=== PATIENT | female | born 1990 | race Caucasian/White ===

== ENCOUNTER 2020-06-13 23:01 | Emergency (ER) | payer OTHER ==
--- NOTE | 2020-06-13 23:22 | EDM.PDOC ---
ED HPI GENERAL MEDICAL PROBLEM - General Stated Complaint: FOOT Time Seen by Provider: 06/13/20 23:20 Source of Information: Reports: Patient History Limitations: Reports: No Limitations - History of Present Illness INITIAL COMMENTS - FREE TEXT/NARRATIVE: Patient slipped at work,and twisted ( backwards) the right foot. Unable to bear weight without pain. - Related Data Allergies Allergy/AdvReac Type Severity Reaction Status Date / Time steri strips Allergy Cannot Uncoded 06/14/20 00:04 Remember Home Meds: Home Meds NK [No Known Home Meds] 06/14/20 [History] Review of Systems - Review of Systems Review Of Systems: Comprehensive ROS is negative, except as noted in HPI. ED EXAM, GENERAL - Physical Exam Exam: See Below Exam Limited By: No Limitations General Appearance: Alert, WD/WN, No Apparent Distress Extremities: Other (Tender dorsum righ mid foot.) Course - Vital Signs Last Recorded V/S: Last Vital Signs Temp 97.6 F 06/13/20 23:01 Pulse 77 06/13/20 23:01 Resp 16 06/13/20 23:01 BP 153/92 H 06/13/20 23:01 Pulse Ox 100 06/13/20 23:01 Departure - Departure Time of Disposition: 19:11 Disposition: Home, Self-Care 01 Condition: Good Clinical Impression: Foot injury - Discharge Information Instructions: Foot Sprain, Walking Boot, Adult, RICE Therapy for Routine Care of Injuries Referrals: PCP,None [Primary Care Provider] - Forms: ED Department Discharge Additional Instructions: RICE Follow up with primary MD - Problem List & Annotations (1) Foot injury SNOMED Code(s): 125870429 Code(s): S99.929A - UNSPECIFIED INJURY OF UNSPECIFIED FOOT, INITIAL ENCOUNTER Status: Acute Qualifiers: Encounter type: initial encounter Laterality: right Qualified Code(s): S99.921A - Unspecified injury of right foot, initial encounter - Problem List Review Problem List Initiated/Reviewed/Updated: Yes - Assessment/Plan Plan: RICE. CAM walker.NSAIDs
== END 2020-06-14 00:20 | disposition home or self-care (01) ==
LOC: FB.ED 23:01
DX: S99.921A Unspecified injury of right foot, initial encounter (principal); Z91.048 Other nonmedicinal substance allergy status; X50.1XXA Overexertion from prolonged static or awkward postures, initial encounter; Y92.512 Supermarket, store or market as the place of occurrence of the external cause
CPT/HCPCS: 73630-RT; 99000; 99282; 99283-25

== ENCOUNTER 2025-07-16 10:26 | Emergency (ER) | payer BC, OTHER ==
[2025-07-16] MEDS: Ketorolac 30 MG/ML SDV IM STA (11:11)
[2025-07-16 12:15] LABS: GLUCOSE,URINE NORMAL (NORMAL); OCCULT BLOOD,URINE NEGATIVE (NEGATIVE)
[2025-07-16 12:16] LABS: APPEARANCE,URINE CLEAR (CLEAR)
[2025-07-16 12:55] LABS: BLOOD UREA NITROGEN,BUN 6 mg/dL (7-18); CARBON DIOXIDE,CO2 26 mmol/L (21-32); CHLORIDE,CL 107 mmol/L (100-110); CREATININE 0.8 mg/dL (0.55-1.02); EST CRCL DRUG DOSING (CG) 83.95 mL/min; ESTIMATED GFR 98 mL/min (>60); GLUCOSE RANDOM 100 mg/dL (80-116); POTASSIUM,K 4.1 mmol/L (3.5-5.3); SODIUM,NA 141 mmol/L (135-145)
[2025-07-16 13:01] LABS: A/G RATIO 1.2; ALANINE AMINOTRANSFERASE,ALT 24 U/L (12-36); ASPARTATE AMNIOTRANSFERASE,AST 14 IU/L (5-25); BILIRUBIN TOTAL 0.2 mg/dL (0.1-1.3); PROTEIN TOTAL,TP 7.0 g/dL (6.0-8.0)
== END 2025-07-16 13:30 | disposition home or self-care (01) ==
LOC: FB.ED 10:26
DX: M51.369 Other intervertebral disc degeneration, lumbar region without mention of lumbar back pain or lower extremity pain (principal); B27.90 Infectious mononucleosis, unspecified without complication; E66.9 Obesity, unspecified; Z79.899 Other long term (current) drug therapy; Z91.048 Other nonmedicinal substance allergy status; Z68.41 Body mass index [BMI] 40.0-44.9, adult
CPT/HCPCS: 36415; 72100; 80053; 81003; 96372; 99283; A9270; J1885